=== PATIENT | female | born 1980 | race Caucasian/White ===

== ENCOUNTER 2021-07-25 00:50 | Inpatient (IN) | payer OTHER ==
[~2021-07-25] VITALS: Ht 175.3 cm; Wt 87.1 kg
[~2021-07-25 00:50] MED LIST: FEOSOL325 MG PO; IBUPROFEN800 M1 PO
[2021-07-25 01:33] LABS: HCT 37.5 % (37.0-47.0); HGB 11.7 g/dl (12.5-16.0); MCH 25.5 pg (25.0-31.0); MCHC 31.2 g/dL (32.0-36.0); MCV 81.9 fL (78.0-100.0); MPV 10.6 fL (6.0-9.5); RBC 4.58 M/uL (4.20-5.40); RDW 14.2 % (11.5-14.0); WBC 7.5 K/uL (4.0-10.5)
[2021-07-25 02:25] LABS: ALBUMIN 2.6 g/dL (3.4-5.0); BILIRUBIN - TOTAL 0.2 mg/dL (0.2-1.0); BUN/CREAT RATIO (CALC) 21.2 RATIO; CREATININE 0.52 mg/dL (0.51-0.95); POTASSIUM 3.8 mmol/L (3.5-5.1); TOTAL PROTEIN 6.6 g/dL (6.4-8.2)
[2021-07-25 02:52] LABS: INR 0.94 (0.9-1.2); PTT 22.9 SECONDS (24.4-34.7)
[2021-07-25 03:35] LABS: BILIRUBIN NEGATIVE (NEGATIVE); BLOOD 2+ Ery/uL (NEGATIVE); CLARITY CLEAR (CLEAR); COLOR YELLOW (YELLOW); GLUCOSE (U) NORMAL (NORMAL); LEUKOCYTES NEGATIVE Leu/uL (NEGATIVE); NITRITE NEGATIVE (NEGATIVE); PROTEIN NEGATIVE (NEGATIVE); SPECIFIC GRAVITY 1.025 (1.001-1.030); UROBILINOGEN 0.2 mg/dL (0.2-1.0)
[2021-07-25 03:41] LABS: BACTERIA 1+
[2021-07-26 06:43] LABS: HCT 29.1 % (37.0-47.0); HGB 9.1 g/dl (12.5-16.0); MCH 25.5 pg (25.0-31.0); MCHC 31.3 g/dL (32.0-36.0); MCV 81.5 fL (78.0-100.0); RBC 3.57 M/uL (4.20-5.40); WBC 11.6 K/uL (4.0-10.5)
[2021-07-27] MEDS ORDERED: IBUPROFEN800 M1 PO (08:55)
[2021-07-27] MEDS ORDERED: PRENATAL FORMU1 EACH PO (08:55)
[2021-07-27] MEDS ORDERED: COLACE100 MG PO (08:55)
[2021-07-27] MEDS ORDERED: FEOSOL325 MG PO (08:55)
== END 2021-07-27 11:47 | disposition home or self-care (01) | DRG 806 ==
LOC: FOB 00:50
PROVIDERS: Obstetrics & Gynecology; ADMIT Specialist
PROC: 10E0XZZ Delivery of Products of Conception, External Approach (ICD-10-PCS; principal; 2021-07-25)
DX: O36.63X0 Maternal care for excessive fetal growth, third trimester, not applicable or unspecified (principal); D62 Acute posthemorrhagic anemia; Z37.0 Single live birth; O26.23 Pregnancy care for patient with recurrent pregnancy loss, third trimester; Z20.822 Contact with and (suspected) exposure to COVID-19; Z3A.39 39 weeks gestation of pregnancy; O90.81 Anemia of the puerperium; O34.13 Maternal care for benign tumor of corpus uteri, third trimester; D25.9 Leiomyoma of uterus, unspecified; O77.0 Labor and delivery complicated by meconium in amniotic fluid; O13.4 Gestational [pregnancy-induced] hypertension without significant proteinuria, complicating childbirth
CPT/HCPCS: 36415; 80053; 81001; 85384; 85610; 85730; 86850; 86900; 86901; J2001; J2916; J7120; U0002